=== PATIENT | male | born 1975 | race Caucasian/White ===

== ENCOUNTER 2021-11-27 10:06 | Outpatient (CLI) | payer OTHER | END 2021-11-27 10:07 | disposition home or self-care (01) | LOC: CSHMRI 10:06 | PROVIDERS: ATTEND Orthopaedic Surgery | DX: M23.92 Unspecified internal derangement of left knee (principal); T84.410A Breakdown (mechanical) of muscle and tendon graft, initial encounter; S83.242A Other tear of medial meniscus, current injury, left knee, initial encounter; M67.462 Ganglion, left knee; M66.0 Rupture of popliteal cyst; M22.42 Chondromalacia patellae, left knee; M23.42 Loose body in knee, left knee ==